=== PATIENT | female | born 2005 ===

== ENCOUNTER 2024-12-14 12:55 | Emergency (ER) | payer BC, MEDICAID, OTHER ==
[2024-12-14] MEDS: Diphtheria,Pertussis(Acell),Tetanus Vaccine 0.5 ML Syringe IM ONE (15:08)
[2024-12-14 15:30] VITALS: BP 116/70; PULSE 83
== END 2024-12-14 15:30 | disposition home or self-care (01) ==
LOC: MW.ED 12:55
DX: S61.217A Laceration without foreign body of left little finger without damage to nail, initial encounter (principal); F17.210 Nicotine dependence, cigarettes, uncomplicated; Z75.8 Other problems related to medical facilities and other health care; Z23 Encounter for immunization; W26.0XXA Contact with knife, initial encounter; Y93.89 Activity, other specified; Y99.0 Civilian activity done for income or pay
CPT/HCPCS: 12001; 90471; 90715; 99282-25